=== PATIENT | female | born 1980 | race Caucasian/White ===

== ENCOUNTER 2016-08-24 07:17 | Emergency (ER) | payer OTHER ==
--- NOTE | 2016-08-24 08:49 | DIAGNOSTIC IMAGING REPORT ---
PROCEDURE: CT ABDOMEN/PELVIS W/O CONTRAST INDICATION: Left flank pain. TECHNIQUE: Noncontrast axial images were obtained of the entire abdomen and pelvis with sagittal and coronal reformations. COMPARISON: None. FINDINGS: ABDOMEN: 4.5 mm left pelvic calcification mild left hydroureteronephrosis. This may represent a distal ureteral calculus versus phlebolith. There is a single 1 mm nonobstructing left renal lower pole calculus. There are three nonobstructing right renal calculi (1 - 5 mm). Mild right basilar scarring. Heart size is normal. Cholecystectomy. Liver, pancreas, spleen and adrenal glands are normal. Normal abdominal aorta. Nonspecific bowel gas pattern. PELVIS: Normal appendix. 2 cm right ovarian cyst with trace free fluid. The uterus and bladder are unremarkable. No suspicious osseous lesions. IMPRESSION: 1. 4.5 mm left pelvic distal ureteral calculus versus phlebolith with mild left hydroureteronephrosis which could also be due to a recently passed calculus 2. Bilateral nonobstructing renal calculi 3. 2 cm right ovarian cyst with trace free fluid 4. Results discussed with Dr. Gómez All CT scans at this facility use dose modulation, iterative reconstruction, and/or weight-based dosing when appropriate to reduce radiation dose to as low as reasonably achievable.
--- NOTE | 2016-08-24 09:16 | ED ORDER SUMMARY ---
..... Patient: HUGO GARCIA OrderSheet [facility] VisitID: [id number] [address] [place] [address] 36y, F Registration Date/Time: 08/24/2016 ORDER SHEET Weight: 81.6 kg (stated) Allergies: Amoxicillin, Percocet GENERAL ORDERS: CT Abd/Pel wo Cont Urgent (07:08/24/2016 Felipe TONG) (Ack 7:48 LNations ER Tech1) (8:25 MWinterer R.N.) UA-Culture if indicated Urgent (:08/24/2016 Felipe TONG) (Ack 7:49 LNations ER Tech1) (8:06 MWinterer R.N.) Urine Urgent (:08/24/2016 Felipe TONG) (Ack 7:49 LNations ER Tech1) (8:06 MWinterer R.N.) CBC w Diff Urgent (:08/24/2016 Felipe TONG) (7:28 MWinterer R.N.) CMP Urgent (07:08/24/2016 Felipe TONG) (7:28 MWinterer R.N.) Lipase Urgent (:08/24/2016 Felipe TONG) (7:28 MWinterer R.N.) MEDICATION ORDERS: IV FLUIDS: Toradol IV 30 mg (NOW) (07:08/24/2016 Felipe TONG) (7:29 MWinterer R.N.) Dilaudid IV 1 mg (NOW) (07:08/24/2016 Felipe TONG) (7:30 MWinterer R.N.) Zofran IV 4 mg (NOW) (:08/24/2016 Felipe TONG) (7:30 MWinterer R.N.) Ativan IV 0.5 mg (NOW) (:08/24/2016 Felipe TONG) (7:29 MWinterer R.N.) IV NS : initial bolus 500 mL (1000 mL/hr), then 250 mL/hr for 4h (NOW); Routine (07:08/24/2016 Felipe TONG) (7:28 MWinterer R.N.) ORDER SHEET NOTES: [Electronically signed by Baylee Lambert R.N. (11:47 08/24/2016)] [Electronically signed by Nolan Gómez MD (02:49 09/05/2016)] [Electronically locked/signed by Baylee Lambert R.N. (11:47 08/24/2016)]
--- NOTE | 2016-08-24 09:16 | ED NURSING NOTES ---
Clinical Report - Nurses [facility] [address] [place] [address] 08/24/2016 7:18 Patient: HUGO GARCIA TRIAGE Acuity: LEVEL 3. Chief Complaint: FREQUENCY and LEFT-SIDED FLANK PAIN. Alert. No acute distress. SEPSIS SCREEN: Sepsis Screen. Negative (no infection suspected/documented). --07:23 Baylee Lambert R.N. 07:18 08/24/16. HR: 91. RR: 24. O2 saturation: 99% on room air. Temp: 98 F (oral). Pain level now: 12/01. --07:23 Baylee Lambert R.N. Weight: 81.6 kg stated. Height/Length: 66 inches Per Patient. BMI: 29. --07:21 Baylee Lambert R.N. Medications None. --07:18 Baylee Lambert R.N. Medication/allergy information source: the patient. --07:23 Baylee Lambert R.N. Allergies Amoxicillin. Percocet. --07:18 Baylee Lambert R.N. History Arrived by EMS. Historian: patient. This started just prior to arrival. Treatment ORE MIXER: None. PAST MEDICAL HX: Last normal menstrual period was 1 week ago. Sexual history - sexually active. No contraception. SOCIAL HX: Current every day light tobacco smoker (cigarette)- less than 1/2 a pack per day. History of occasional drug use: marijuana. No alcohol use. FALL RISK ASSESSMENT: Fall risk assessment completed. No fall risk identified. NUTRITIONAL RISK ASSESSMENT: The nutritional risk assessment revealed no deficiencies. FUNCTIONAL ASSESSMENT: Functional assessment: no impairments noted. LEARNING NEEDS ASSESSMENT: The learning needs assessment revealed no barriers. SKIN INTEGRITY ASSESSMENT: Skin integrity risk assessment completed. No skin integrity risk identified. --07:23 Baylee Lambert R.N. Assessment GENERAL / NEURO / PSYCH: Alert. Oriented X 4. Appears in pain and anxious. Yara Coma Scale: 15- eyes open spontaneously (4); best verbal response- oriented x 4 (5); best motor response- obeys commands (6). RESPIRATORY: Respirations not labored. CVS: Capillary refill less than 2 seconds. GI / : Abdomen soft. SKIN: Mucous membranes are pink. Skin is warm and dry. --: Baylee Lambert R.N. Interventions ID band on patient. To treatment room. --: Baylee Lambert R.N. PHYSICAL ASSESSMENT To room via stretcher. GENERAL / NEURO / PSYCH: Alert. Oriented X 4. Appears in pain and anxious. HEENT: Mucous membranes are pink. RESPIRATORY: Respirations not labored. CVS: Capillary refill less than 2 seconds. SKIN: Skin is warm and dry. --: Baylee Lambert R.N. NURSING PROGRESS NOTES 07:08/24/16. Patient gowned. Two patient identifiers checked. Call light placed in reach. Side rails up x 2. Bed placed in lowest position. Brakes of bed on. Patient ready for evaluation- chart flagged and ED physician notified. --: Baylee Lambert R.N. 07:08/24/2016 Site #1 started via IV in the left forearm with an 20g angiocath, with aseptic technique and good blood return; one attempt. Blood drawn: rainbow set. Labeled in the presence of the patient and sent to the lab. Saline lock flushed with 10 mL saline. --: Baylee Lambert R.N. 07:08/24/2016 Started bag #1 1000 mL IV Fluids IV NS (Saline); at 1000 mL/hr over 30 minute(s) via site #1 via IV pump. Allergies verified and confirmed 5 rights. IV patency established. IV site checked: no pain, redness, or swelling. IV flushed thoroughly pre- and post-medication administration. --: Baylee Lambert R.N. 07:08/24/2016 Ativan (LORazepam) IVP 0.5 mg given over 1 minute(s) via site #1. Allergies verified, confirmed 5 rights and sedative warning given to the patient. IV patency established. IV site checked: no pain, redness, or swelling. IV flushed thoroughly pre- and post-medication administration. --: Baylee Lambert R.N. 07:08/24/2016 Toradol IVP 30 mg given over 1 minute(s) via site #1. Allergies verified and confirmed 5 rights. IV patency established. IV site checked: no pain, redness, or swelling. IV flushed thoroughly pre- and post-medication administration. IVP given by RN. --07:29 Baylee Lambert R.N. 07:29 08/24/2016 Zofran (Ondansetron HCl) IVP 4 mg given over 1 minute(s) via site #1. Allergies verified and confirmed 5 rights. IV patency established. IV site checked: no pain, redness, or swelling. IV flushed thoroughly pre- and post-medication administration. IVP given by RN. --07:30 Baylee Lambert R.N. 07:08/24/2016 Dilaudid (HYDROmorphone HCl PF) IVP 1 mg given over 1 minute(s) via site #1. Allergies verified, confirmed 5 rights and sedative warning given to the patient. IV patency established. IV site checked: no pain, redness, or swelling. IV flushed thoroughly pre- and post-medication administration. IVP given by RN. --07:30 Baylee Lambert R.N. ( Assisted pt. to restroom to collect urine sample.). --07:57 Ashley Cedillo ER Tech1 Patient ID band checked for patient name and birthdate: patient confirmed. Instructions provided to collect clean catch urine and patient verbalized understanding. Clean catch urine collected with return of nicole-colored clear urine; sample sent to lab for urinalysis, culture and HCG. Specimen labeled in the presence of the patient. --08:09 Ashley Cedillo ER Tech1 ( POC. Preg. - negative). --08:10 Ashley Cedillo ER Tech1 08:10 08/24/2016 IV Fluids IV NS via IV site #1 Rate Changed: bag #1 decreased to 250 mL/hr via IV pump. IV patency established. IV site checked: no pain, redness, or swelling. IV flushed thoroughly. Confirmed 5 Rights. --08:10 Baylee Lambert R.N. 08:25 08/24/16. Patient returned from CT by fátima with tech. --08:25 Baylee Lambert R.N. 08:29 08/24/16. Reassessment after fluids administered and medication administered. She is calm and resting quietly and has had no adverse reaction. Overall patient status is improved- she states feels better (pain level 4). --08:29 Baylee Lambert R.N. 09:15 08/24/2016 IV Fluids IV NS Discontinued: bag #1 infused. Total amount infused: 1000 mL. IV patency established. IV site checked: no pain, redness, or swelling. IV flushed thoroughly. --09:15 Baylee Lambert R.N. DISPOSITION / DISCHARGE Departure time: 09:45 Aug 24 2016. Condition at departure: improved and stable. No learning barriers present. Discharge instructions provided and reviewed with the patient. Reviewed medication(s) side effects, precautions, dosing and course information. Prescription(s) given to the patient (zofran and hydrocodone). Patient verbalized understanding. Written instructions provided in Nepalese. The patient was discharged by the physician. She was discharged home and accompanied by spice cleaner. She left the Emergency Department ambulatory and via private vehicle. Supply Chain Vice President driving. --11:47 Baylee Lambert R.N. 11:45 08/24/16. BP: 103/68. HR: 64. RR: 16. O2 saturation: 97% on room air. Temp: 98 F (oral). Pain level now: 05/01. --11:47 Baylee Lambert R.N. 09:40 08/24/2016 Site #1 removed upon discharge. Catheter intact. Manual pressure and bandage applied. --11:47 Baylee Lambert R.N. Locked/Released at 08/24/2016 11:47 by Baylee Lambert R.N.
--- NOTE | 2016-08-24 09:16 | ED CLINICAL REPORT ---
Clinical Report - Physicians/Mid Levels [facility] [address] [place] [address] 08/24/2016 7:18 [id number] Time Seen: 07:21 Aug 24 2016. Arrived- By private vehicle. Historian- patient. CPT: ER phys charges level 4 (#260232). HISTORY OF PRESENT ILLNESS Chief Complaint: FLANK PAIN. This started today and is still present. It is described as "pain" and it is described as located in the left abdomen and left lower quadrant and the left flank. At its maximum, severity described as severe. When seen in the E.D., severity described as severe. Modifying factors. Not worsened by anything. Not relieved by anything. The patient has had nausea and loss of appetite. No vomiting or diarrhea. No recent travel. Similar symptoms previously: None. Recent medical care: Not recently seen/assessed. REVIEW OF SYSTEMS No constipation, black stools, hematemesis, difficulty with urination or pain with urination. No urinary frequency, fever, headache, sore throat or blurred vision. No chest pain, difficulty breathing, cough, joint pain or skin rash. No chills. The patient has had back pain. All systems otherwise negative, except as recorded above. PAST HISTORY No history of peptic ulcer. No history of gallstones or bowel obstruction. Has not had urinary calculi. Problems: SVT. Medications: None. Allergies: Amoxicillin. Percocet. SOCIAL HISTORY Heavy tobacco smoker (cigarette)- less than 1 pack per day. History of drug use: marijuana. No alcohol use. ADDITIONAL NOTES The nursing notes have been reviewed. PHYSICAL EXAM Vital Signs: 08/24/2016 07:18 HR: 91. RR: 24. O2 saturation: 99%. Temp: 98 F. Pain level now: 10/10. Appearance: Alert. Appears to be in pain. Patient in moderate distress. Eyes: Eyes normal inspection. ENT: Pharynx normal. Neck: Normal inspection. CVS: Normal heart rate and rhythm. Heart sounds normal. Pulses normal. Respiratory: No respiratory distress. Breath sounds normal. Chest nontender. Abdomen: Soft and nontender. Bowel sounds normal. Back: Normal inspection. Skin: Skin warm. Normal skin color. No rash. Extremities: Extremities exhibit normal ROM. No lower extremity edema. Neuro: Oriented X 3. No motor deficit. No sensory deficit. Reflexes normal. LABS, X-RAYS, AND EKG Abdominal CT: A single urinary calculus is present in the left distal ureter (3 mm). There is mild obstruction. Mild hydronephrosis of the left kidney. Abdominal CT performed without contrast. The study was independently viewed by me, interpreted by the radiologist and discussed with the radiologist. Laboratory Tests: UA-Culture if indicated: (NICOLE: 08/24/2016 08:00) ( [facility] 08/24/2016 08:30) Final results Test Result Flag Units (Reference) URINE COLOR YELLOW URINE APPEARANCE SL CLOUDY URINE GLUCOSE NEGATIVE (NEGATIVE) URINE BILIRUBIN 1+ (NEGATIVE) QNS FOR CONFIRMATORY TESTING URINE KETONE NEGATIVE (NEGATIVE) URINE SPECIFIC GRAVITY 1.025 (1.010-1.030) URINE PH 6.0 (5.0-8.0) URINE PROTEIN 2+ (NEGATIVE) URINE UROBILINOGEN 0.2 EU/dL (0.2-1.0) URINE NITRITE NEGATIVE (NEGATIVE) URINE BLOOD 3+ (NEGATIVE) URINE LEUK ESTERASE TRACE (NEGATIVE) URINE RBC 10-25 rbc/hpf (0-1) URINE WBC 5-10 wbc/hpf (0-1) URINE EPITHELIAL CELLS >15 EPI/hpf (0-5) URINE BACTERIA FEW (1+) (NONE SEEN) URINE COMMENT CULTURE INDICATED < 3mL SPECIMEN3+ MUCOUSEPITHELIAL CONTAMINATION. CULTURE NOT SETUPPlease call laboratory if culture wanted.URINE CULTURES ARE SET-UP BASED ON THE FOLLOWING CRITERIA:POSITIVE NITRITEPOSITIVE LEUKOCYTE ESTERASEGREATER THAN 10 WHITE BLOOD CELLSMODERATE (2+) OR GREATER BACTERIA Urine: (NICOLE: 08/24/2016 08:00) ( [facility] 08/24/2016 08:18) Final results Test Result Flag Units (Reference) URINE NEGATIVE CBC w Diff: (NICOLE: 08/24/2016 07:22) ( [facility] 08/24/2016 07:44) Final results Test Result Flag Units (Reference) WHITE BLOOD COUNT 10.3 K/uL (4.5-11.5) RED BLOOD COUNT 4.99 M/uL (4.00-5.20) HEMOGLOBIN 14.3 gm/dL (12.0-16.0) HEMATOCRIT 42.8 % (36.0-46.0) MEAN CELL VOLUME 86 fL (80-100) MEAN CORPUSCULAR HGB 29 pg (26-34) MEAN CORPUSCULAR HGB CONC 34 g/dL (31-37) RED CELL DISTRIBUTION WIDTH 13.4 % (11.6-14.8) PLATELET COUNT 353 K/uL (150-400) NEUTROPHIL % 62.1 % (50-75) LYMPH % 27.2 % (25-40) MONO % 6.0 % (3-14) EOSINOPHIL % 4.3 H % (0-4) BASOPHIL % 0.4 % (0-2) CMP: (NICOLE: 08/24/2016 07:22) ( MsgRcvd 08/24/2016 08:00) Final results Test Result Flag Units (Reference) GLUCOSE 108 mg/dL (70-110) BUN 12 mg/dL (7-18) CREATININE 0.9 mg/dL (0.6-1.3) Estimated GFR >60 mL/min Estimated GFR- >60 mL/min Note: Persistent reduction over 3 months in eGFR<60 mL/min/1.73 m2 defines CKD. Patients with eGFR values>=60 mL/min/1.73 m2 may also have CKD if evidence ofpersistent proteinuria. Additional information may be foundat www.kidney.org. SODIUM 140 mmol/L (136-145) POTASSIUM 3.5 mmol/L (3.5-5.1) CHLORIDE 104 mmol/L (98-107) CARBON DIOXIDE 26 mmol/L (21-32) CALCIUM 9.2 mg/dL (8.5-10.1) TOTAL PROTEIN 7.2 g/dL (6.4-8.2) ALBUMIN 3.9 g/dL (3.3-5.0) BILIRUBIN, TOTAL 0.6 mg/dL (0.0-1.0) ALKALINE PHOSPHATASE 58 U/L (46-116) AST (SGOT) 23 U/L (15-37) ALT (SGPT) 27 U/L (12-78) LIPASE 86 U/L (73-393) . PROGRESS AND PROCEDURES Course of Care: IV NS Zofran 4 mg Iv Toradol 30 mg IV Dilaudid 1 mg Iv Ativan 0.5 mg IV Patient is stable. Symptoms much better. Patient/family counseled. Disposition: Discharged. Condition: stable and improved. CLINICAL IMPRESSION Ureterolithiasis (single stone) in the left ureter with renal colic and hydronephrosis. INSTRUCTIONS Do not work for two days until better. Drink plenty of fluids. Warnings: Further evaluation is necessary. GENERAL WARNINGS: Return or contact your physician immediately if your condition worsens or changes unexpectedly, if not improving as expected, or if other problems arise. Prescription Medications: Hydrocodone/APAP 5mg / 325mg: take 1-2 orally every 4 hours as needed for pain. Dispense twenty (20). No refill. Zofran (orally disintegrating tablets) 4 mg: take 1 orally every 4 hours as needed for nausea. Dispense ten (10). No refill. Follow-up: Follow up with your doctor in one week. Call for an appointment. Understanding of the discharge instructions verbalized by patient. (Electronically signed by Nolan Gómez MD 09/05/2016 2:49)
--- NOTE | 2016-08-24 09:16 | ED ORDER SUMMARY ---
..... Patient: HUGO GARCIA OrderSheet [facility] VisitID: [id number] [address] [place] [address] 36y, F Registration Date/Time: 08/24/2016 ORDER SHEET Weight: 81.6 kg (stated) Allergies: Amoxicillin, Percocet GENERAL ORDERS: CT Abd/Pel wo Cont Urgent (07:08/24/2016 Felipe TONG) (Ack 7:48 LNations ER Tech1) (8:25 MWinterer R.N.) UA-Culture if indicated Urgent (:08/24/2016 Felipe TONG) (Ack 7:49 LNations ER Tech1) (8:06 MWinterer R.N.) Urine Urgent (:08/24/2016 Felipe TONG) (Ack 7:49 LNations ER Tech1) (8:06 MWinterer R.N.) CBC w Diff Urgent (:08/24/2016 Felipe TONG) (7:28 MWinterer R.N.) CMP Urgent (07:08/24/2016 Felipe TONG) (7:28 MWinterer R.N.) Lipase Urgent (:08/24/2016 Felipe TONG) (7:28 MWinterer R.N.) MEDICATION ORDERS: IV FLUIDS: Toradol IV 30 mg (NOW) (07:08/24/2016 Felipe TONG) (7:29 MWinterer R.N.) Dilaudid IV 1 mg (NOW) (07:08/24/2016 Felipe TONG) (7:30 MWinterer R.N.) Zofran IV 4 mg (NOW) (:08/24/2016 Felipe TONG) (7:30 MWinterer R.N.) Ativan IV 0.5 mg (NOW) (:08/24/2016 Felipe TONG) (7:29 MWinterer R.N.) IV NS : initial bolus 500 mL (1000 mL/hr), then 250 mL/hr for 4h (NOW); Routine (07:08/24/2016 Felipe TONG) (7:28 MWinterer R.N.) ORDER SHEET NOTES: [Electronically signed by Baylee Lambert R.N. (11:47 08/24/2016)] [Electronically signed by Nolan Gómez MD (02:49 09/05/2016)] [Electronically locked/signed by Baylee Lambert R.N. (11:47 08/24/2016)]
--- NOTE | 2016-09-05 02:49 | ED MAR SUMMARY ---
..... Medication Administration Record [facility] [address] [place] [address] Patient: HUGO GARCIA Visit ID: [id number] 36y, F Weight: 81.6 kg Height/Length: 66 in BMI: 29 ALLERGIES: Amoxicillin, Percocet Start 07:28 08/24/2016 Baylee Lambert R.N., Stop 09:15 08/24/2016 Baylee Lambert R.N. Medication Administered: IV NS (SALINE), Dose: IV Fluids over 30 minute(s), Rate: 1000 mL/hr, Dispensed: 1000 mL bag, Site: #1 left forearm. Medication Ordered: IV NS : initial bolus 500 mL (1000 mL/hr), then 250 mL/hr for 4h (NOW); Routine. Given 07:08/24/2016 Baylee Lambert R.N. Medication Administered: TORADOL [IVP], Dose: 30 mg IVP over 1 minute(s), Site: #1 left forearm. Medication Ordered: Toradol IV 30 mg (NOW). Given 07:08/24/2016 Baylee Lambert R.N. Medication Administered: ZOFRAN [IVP] (ONDANSETRON HCL), Dose: 4 mg IVP over 1 minute(s), Site: #1 left forearm. Medication Ordered: Zofran IV 4 mg (NOW). Given 07:08/24/2016 Baylee Lambert R.N. Medication Administered: ATIVAN [IVP] (LORAZEPAM), Dose: 0.5 mg IVP over 1 minute(s), Site: #1 left forearm. Medication Ordered: Ativan IV 0.5 mg (NOW). Given :08/24/2016 Baylee Lambert R.N. Medication Administered: DILAUDID [IVP] (HYDROMORPHONE HCL PF), Dose: 1 mg IVP over 1 minute(s), Site: #1 left forearm. Medication Ordered: Dilaudid IV 1 mg (NOW).
--- NOTE | 2016-09-05 02:49 | ED MED RECONCILIATION SUMMARY ---
Patient: HUGO GARCIA Medication Reconciliation Report [facility] VisitID: [id number] [address] [place] [address] 36y, F Registration Date/Time: 08/24/2016 Weight: 81.6 kg Height/Length: 66 in. BMI: 29.0 ALLERGIES: Amoxicillin, Percocet The patient's Home Medications are listed below: NONE. The source(s) of the original Home Medication information: patient The following Medications were given to the patient in the Emergency Department: IV NS IV Fluids bolus 0, then 1000 mL/hr, administered: 08/24/2016 7:28:00 AM Ativan [IVP] IVP 0.5 mg, administered: 08/24/2016 7:29:00 AM Toradol [IVP] IVP 30 mg, administered: 08/24/2016 7:29:00 AM Zofran [IVP] IVP 4 mg, administered: 08/24/2016 7:29:00 AM Dilaudid [IVP] IVP 1 mg, administered: 08/24/2016 7:30:00 AM The following Medications were prescribed to the patient: Hydrocodone/APAP 5mg / 325mg: take 1-2 orally every 4 hours as needed for pain. Dispense twenty (20). No refill. -- Nolan Gómez MD Zofran (orally disintegrating tablets) 4 mg: take 1 orally every 4 hours as needed for nausea. Dispense ten (10). No refill. -- Nolan Gómez MD
--- NOTE | 2016-09-05 02:49 | ED MED RECONCILIATION SUMMARY ---
Patient: HUGO GARCIA Medication Reconciliation Report [facility] VisitID: [id number] [address] [place] [address] 36y, F Registration Date/Time: 08/24/2016 Weight: 81.6 kg Height/Length: 66 in. BMI: 29.0 ALLERGIES: Amoxicillin, Percocet The patient's Home Medications are listed below: NONE. The source(s) of the original Home Medication information: patient The following Medications were given to the patient in the Emergency Department: IV NS IV Fluids bolus 0, then 1000 mL/hr, administered: 08/24/2016 7:28:00 AM Ativan [IVP] IVP 0.5 mg, administered: 08/24/2016 7:29:00 AM Toradol [IVP] IVP 30 mg, administered: 08/24/2016 7:29:00 AM Zofran [IVP] IVP 4 mg, administered: 08/24/2016 7:29:00 AM Dilaudid [IVP] IVP 1 mg, administered: 08/24/2016 7:30:00 AM The following Medications were prescribed to the patient: Hydrocodone/APAP 5mg / 325mg: take 1-2 orally every 4 hours as needed for pain. Dispense twenty (20). No refill. -- Nolan Gómez MD Zofran (orally disintegrating tablets) 4 mg: take 1 orally every 4 hours as needed for nausea. Dispense ten (10). No refill. -- Nolan Gómez MD
--- NOTE | 2016-09-05 02:49 | ED MAR SUMMARY ---
..... Medication Administration Record [facility] [address] [place] [address] Patient: HUGO GARCIA Visit ID: [id number] 36y, F Weight: 81.6 kg Height/Length: 66 in BMI: 29 ALLERGIES: Amoxicillin, Percocet Start 07:28 08/24/2016 Baylee Lambert R.N., Stop 09:15 08/24/2016 Baylee Lambert R.N. Medication Administered: IV NS (SALINE), Dose: IV Fluids over 30 minute(s), Rate: 1000 mL/hr, Dispensed: 1000 mL bag, Site: #1 left forearm. Medication Ordered: IV NS : initial bolus 500 mL (1000 mL/hr), then 250 mL/hr for 4h (NOW); Routine. Given 07:08/24/2016 Baylee Lambert R.N. Medication Administered: TORADOL [IVP], Dose: 30 mg IVP over 1 minute(s), Site: #1 left forearm. Medication Ordered: Toradol IV 30 mg (NOW). Given 07:08/24/2016 Baylee Lambert R.N. Medication Administered: ZOFRAN [IVP] (ONDANSETRON HCL), Dose: 4 mg IVP over 1 minute(s), Site: #1 left forearm. Medication Ordered: Zofran IV 4 mg (NOW). Given 07:08/24/2016 Baylee Lambert R.N. Medication Administered: ATIVAN [IVP] (LORAZEPAM), Dose: 0.5 mg IVP over 1 minute(s), Site: #1 left forearm. Medication Ordered: Ativan IV 0.5 mg (NOW). Given :08/24/2016 Baylee Lambert R.N. Medication Administered: DILAUDID [IVP] (HYDROMORPHONE HCL PF), Dose: 1 mg IVP over 1 minute(s), Site: #1 left forearm. Medication Ordered: Dilaudid IV 1 mg (NOW).
--- NOTE | 2016-09-05 02:49 | ED DISCHARGE INSTRUCTIONS ---
Patient: HUGO GARCIA General Instructions [facility] VisitID: [id number] [address] [place] [address] 36y, F Registration Date/Time: 08/24/2016 Ureterolithiasis (single stone) in the left ureter with renal colic and hydronephrosis. INSTRUCTIONS Do not work for two days until better. Drink plenty of fluids. Warnings: Further evaluation is necessary. GENERAL WARNINGS: Return or contact your physician immediately if your condition worsens or changes unexpectedly, if not improving as expected, or if other problems arise. Prescription Medications: Hydrocodone/APAP 5mg / 325mg: take 1-2 orally every 4 hours as needed for pain. Dispense twenty (20). No refill. Zofran (orally disintegrating tablets) 4 mg: take 1 orally every 4 hours as needed for nausea. Dispense ten (10). No refill. Follow-up: Follow up with your doctor in one week. Call for an appointment. Understanding of the discharge instructions verbalized by patient. ADDITIONAL INFORMATION Kidney Stone (W/ Colic) The sharp cramping pain and nausea/vomiting that you have is due to a small stone which has formed in the kidney and is now passing down a narrow tube (ureter) on its way to your bladder. Once it reaches your bladder, the pain will stop. The stone may pass in your urine stream in one piece. [The size may be 1/16" to 1/4" (1-6mm)]. Or, the stone may also break up into rossy fragments which you may not even notice. Once you have had a kidney stone, you are at risk for developing another one in the future. Home Care: Drink plenty of fluids (at least 8 to 10 glasses of water a day). Most stones will pass on their own, but may take from a few hours to a few days. Sometimes the stone is too large to pass by itself and special methods will have to be used to remove the stone. Each time you urinate, do so in a jar. Pour the urine from the jar through the strainer and into the toilet. Continue doing this until 24 hours after your pain stops. By then, if there was a kidney stone, it should pass from your bladder. Some stones dissolve into sand-like particles and pass right through the strainer. In that case, you wont ever see a stone. Save any stone that you find in the strainer and bring it to your doctor for analysis. It may be possible to prevent certain types of stones from forming. Therefore, it is important to know what kind of stone you have. Try to stay as active as possible since this will help the stone pass. Do not stay in bed unless your pain prevents you from getting up. You may notice a red, pink or brown color to your urine. This is normal while passing a kidney stone. Follow Up with your doctor or return to this facility if the pain lasts more than 48 hours. Get Prompt Medical Attention if any of the following occur: Pain that is not controlled by the medicine given Repeated vomiting or unable to keep down fluids Weakness, dizziness or fainting Fever of 100.4F (38C) or higher, or as directed by your healthcare provider Passage of solid red or brown urine (can't see through it) or urine with lots of blood clots Unable to pass urine for 8 hours and increasing bladder pressure Hydrocodone Bitartrate, Acetaminophen Oral tablet What is this medicine? ACETAMINOPHEN; HYDROCODONE (a set a ANA bridget fen; jade droe KOE done) is a pain reliever. It is used to treat mild to moderate pain. How should I use this medicine? Take this medicine by mouth. Swallow it with a full glass of water. Follow the directions on the prescription label. If the medicine upsets your stomach, take the medicine with food or milk. Do not take more than you are told to take. Talk to your procurement services manager regarding the use of this medicine in children. This medicine is not approved for use in children. What side effects may I notice from receiving this medicine? Side effects that you should report to your doctor or health rental boats caretaker as soon as possible: allergic reactions like skin rash, itching or hives, swelling of the face, lips, or tongue breathing problems confusion feeling faint or lightheaded, falls stomach pain yellowing of the eyes or skin Side effects that usually do not require medical attention (report to your doctor or health rental boats caretaker if they continue or are bothersome): nausea, vomiting stomach upset What may interact with this medicine? alcohol antihistamines isoniazid medicines for depression, anxiety, or psychotic disturbances medicines for sleep muscle relaxants naltrexone narcotic medicines (opiates) for pain phenobarbital ritonavir tramadol What if I miss a dose? If you miss a dose, take it as soon as you can. If it is almost time for your next dose, take only that dose. Do not take double or extra doses. Where should I keep my medicine? Keep out of the reach of children. This medicine can be abused. Keep your medicine in a safe place to protect it from theft. Do not share this medicine with anyone. Selling or giving away this medicine is dangerous and against the law. Store at room temperature between 15 and 30 degrees C (59 and 86 degrees F). Protect from light. Keep container tightly closed. Throw away any unused medicine after the expiration date. Discard unused medicine and used packaging carefully. Pets and children can be harmed if they find used or lost packages. What should I tell my health care provider before I take this medicine? They need to know if you have any of these conditions: brain tumor Crohn's disease, inflammatory bowel disease, or ulcerative colitis drink more than 3 alcohol-containing drinks per day drug abuse or addiction head injury heart or circulation problems kidney disease or problems going to the bathroom liver disease lung disease, asthma, or breathing problems an unusual or allergic reaction to acetaminophen, hydrocodone, other opioid analgesics, other medicines, foods, dyes, or preservatives or trying to get breast-feeding What should I watch for while using this medicine? Tell your doctor or health rental boats caretaker if your pain does not go away, if it gets worse, or if you have new or a different type of pain. You may develop tolerance to the medicine. Tolerance means that you will need a higher dose of the medicine for pain relief. Tolerance is normal and is expected if you take the medicine for a long time. Do not suddenly stop taking your medicine because you may develop a severe reaction. Your body becomes used to the medicine. This does NOT mean you are addicted. Addiction is a behavior related to getting and using a drug for a non-medical reason. If you have pain, you have a medical reason to take pain medicine. Your doctor will tell you how much medicine to take. If your doctor wants you to stop the medicine, the dose will be slowly lowered over time to avoid any side effects. You may get drowsy or dizzy when you first start taking the medicine or change doses. Do not drive, use machinery, or do anything that may be dangerous until you know how the medicine affects you. Stand or sit up slowly. There are different types of narcotic medicines (opiates) for pain. If you take more than one type at the same time, you may have more side effects. Give your health care provider a list of all medicines you use. Your doctor will tell you how much medicine to take. Do not take more medicine than directed. Call emergency for help if you have problems breathing. The medicine will cause constipation. Try to have a bowel movement at least every 2 to 3 days. If you do not have a bowel movement for 3 days, call your doctor or health rental boats caretaker. Too much acetaminophen can be very dangerous. Do not take Tylenol (acetaminophen) or medicines that contain acetaminophen with this medicine. Many non-prescription medicines contain acetaminophen. Always read the labels carefully. Ondansetron Oral disintegrating tablet What is this medicine? ONDANSETRON (on BRAYDEN se kina) is used to treat nausea and vomiting caused by chemotherapy. It is also used to prevent or treat nausea and vomiting after surgery. How should I use this medicine? These tablets are made to dissolve in the mouth. Do not try to push the tablet through the foil backing. With dry hands, peel away the foil backing and gently remove the tablet. Place the tablet in the mouth and allow it to dissolve, then swallow. While you may take these tablets with water, it is not necessary to do so. Talk to your procurement services manager regarding the use of this medicine in children. Special care may be needed. What side effects may I notice from receiving this medicine? Side effects that you should report to your doctor or health rental boats caretaker as soon as possible: allergic reactions like skin rash, itching or hives, swelling of the face, lips, or tongue breathing problems dizziness fast or irregular heartbeat feeling faint or lightheaded, falls fever and chills swelling of the hands and feet tightness in the chest Side effects that usually do not require medical attention (report to your doctor or health rental boats caretaker if they continue or are bothersome): constipation or diarrhea headache What may interact with this medicine? Do not take this medicine with any of the following medications: -apomorphine -cisapride -dofetilide -dronedarone -pimozide -thioridazine -ziprasidone This medicine may also interact with the following medications: -carbamazepine -phenytoin -rifampicin -tramadol -other medicines that prolong the QT interval (cause an abnormal heart rhythm) What if I miss a dose? If you miss a dose, take it as soon as you can. If it is almost time for your next dose, take only that dose. Do not take double or extra doses. Where should I keep my medicine? Keep out of the reach of children. Store between 2 and 30 degrees C (36 and 86 degrees F). Throw away any unused medicine after the expiration date. What should I tell my health care provider before I take this medicine? They need to know if you have any of these conditions: heart disease history of irregular heartbeat liver disease low levels of magnesium or potassium in the blood an unusual or allergic reaction to ondansetron, granisetron, other medicines, foods, dyes, or preservatives or trying to get breast-feeding What should I watch for while using this medicine? Check with your doctor or health rental boats caretaker as soon as you can if you have any sign of an allergic reaction. You have been given the following additional information: Kidney Stone W/ Colic Hydrocodone Bitartrate, Acetaminophen Oral tablet Ondansetron Oral disintegrating tablet Do not work for two days until better. (Electronically signed by Nolan Gómez MD 09/05/2016 2:49)
== END 2016-08-24 09:45 | disposition home or self-care (01) ==
LOC: ED SRH 07:17
DX: N13.2 Hydronephrosis with renal and ureteral calculous obstruction (principal); Z88.0 Allergy status to penicillin; Z88.5 Allergy status to narcotic agent; Z72.0 Tobacco use
CPT/HCPCS: 90004; 90100; 92235; 93070; 95059